=== PATIENT | female | born 1995 | race Caucasian/White ===

== ENCOUNTER 2017-07-23 06:06 | Day surgery (SDC) | payer BC, SELFPAY ==
[~2017-07-23] VITALS: Ht 177.8 cm; Wt 79.4 kg
[~2017-07-23 06:06] MED LIST: APRI1 EACH PO
[2018-04-27] MEDS ORDERED: Mobic15 MG (14:12)
== END 2017-07-23 13:01 | disposition home or self-care (01) ==
LOC: ORSCSDS 06:06
PROVIDERS: Otolaryngology
PROC: 0NR607Z Replacement of Left Temporal Bone with Autologous Tissue Substitute, Open Approach (ICD-10-PCS; principal; 2017-07-23 07:30)
DX: H71.02 Cholesteatoma of attic, left ear (principal)
CPT/HCPCS: 88304; J1100; J2250; J2370; J2405; J3010; J7120